=== PATIENT | female | born 1955 | race Caucasian/White ===

== ENCOUNTER → 2016-08-04 | Outpatient (CLI) | payer BC ==
--- NOTE | 2016-08-04 11:53 | Diagnostic Imaging Report ---
PROCEDURE: US Thyroid. TECHNIQUE: Multiple real-time grayscale images were obtained of the thyroid in various projections. INDICATION: Followup right thyroid nodule. COMPARISON: 09/05/2015. DISCUSSION: The thyroid gland is normal in size. The right thyroid measures 5.7 x 2.0 x 1.9 cm. Left thyroid measures 4.7 x 1.6 x 1.9 cm. The thyroid gland is diffusely heterogenous. Isoechoic solid nodule within the right thyroid lobe measures 2.2 x 1.7 x 1.7 cm, minimally increased in size from previous 1.9 x 1.6 x 1.6 cm. Overall appearance is otherwise stable. No internal color Doppler blood flow or suspicious microcalcifications. Isoechoic nodule within the left thyroid lobe measures 1 cm and was not included on the previous exam. Nodule is similar to the right nodule. There is an additional 6 mm hypoechoic nodule adjacent to the solid nodule within the left thyroid lobe. IMPRESSION: 1. Bilateral thyroid nodules as described, indeterminate by ultrasound criteria. The right thyroid nodule is not significantly changed from the previous exam. The left thyroid nodule is not included on the previous biopsy ultrasound. Recommend one-year sonographic followup. Dictated by: Dictated on workstation # [id number]
--- NOTE | 2016-08-05 16:02 | Diagnostic Imaging Report ---
EXAMINATION: Bilateral screening mammogram with a Computer Aided Detection (CAD) system. INDICATION: Screening. PERSONAL HISTORY: No current complaints stated on the questionnaire. COMPARISON: None available. The patient states that she did have a previous mammogram around 2012; however, she does not remember where and, therefore, the previous films could not be obtained. FINDINGS: There are bilateral focal asymmetries seen in the medial aspect of the left breast and in the retroareolar and central slightly lateral aspect of the right breast. Benign-appearing calcifications are seen. IMPRESSION: Focal compression views and ultrasound evaluation for bilateral breast nodules would be recommended. ACR BI-RADS Category 0: Incomplete. (Needs additional imaging evaluation). Result letter will be mailed to the patient. Note: At least 10% of breast cancer is not imaged by mammography. Dictated by: Dictated on workstation # [id number]
== END ==
LOC: RAD 09:53
PROVIDERS: ATTEND Nurse Practitioner Family
DX: Z12.31 Encounter for screening mammogram for malignant neoplasm of breast (principal); E04.2 Nontoxic multinodular goiter
CPT/HCPCS: 76536; 77067